=== PATIENT | female | born 1935 | race Caucasian/White ===

== ENCOUNTER 2017-01-31 08:42 | Emergency (ER) | payer MEDICARE, MEDICAID ==
--- NOTE | 2017-02-04 08:56 | ER ---
ADMIT: 01/31/2017 RM/LOC: [facility] MR#: [id number] [id number] [place], [place] [id number] [place] [address] Emergency Room Report SEX: F AGE: 81 : 1935 DATE: 01/31/2017 TIME: 0842 hours. Please refer to my T-sheet for complete H and P. Briefly, the patient is a 81-year-old who lives over at [facility], has a history of CVA with left-sided hemiparesis. She is nonambulatory. She had an episode this morning where she seemed not herself, they sent over here for evaluation. She says she now feels pretty much back to normal, maybe a little foggy in her head. No other complaints. No fevers, no cough, no chills. PHYSICAL EXAMINATION: VITAL SIGNS: Stable. HEENT: Grossly normal. LUNGS: Clear. HEART: Regular. ABDOMEN: Soft. SKIN: No rash. NEURO: She has left-sided weakness. She says it is at baseline now. No confusion. EMERGENCY DEPARTMENT COURSE: CT head was negative for acute change, just prior stroke. CBC normal except white count 4.5. Chemistries normal except potassium 3.5, glucose 171. Coags were normal. EKG is sinus rhythm, rate 66, no changes. I gave her 81 mg aspirin p.o. I talked to Dr. Liu. We are going to start as she is going to follow her up. ASSESSMENT: 1. Confusion, resolved. 2. Nicotine abuse. PLAN: Follow up with Dr. Liu and 81 mg aspirin a day. Stop smoking. Return if worse. Giovanni Babb MD/ glenroy JOB #: [id number] CC: Giovanni Babb MD, Attending Physician Leticia Liu MD, Family Physician
== END 2017-01-31 10:30 | disposition home or self-care (01) ==
LOC: ER 08:42
DX: R41.0 Disorientation, unspecified (principal); F17.210 Nicotine dependence, cigarettes, uncomplicated; I10 Essential (primary) hypertension; E78.5 Hyperlipidemia, unspecified; K21.9 Gastro-esophageal reflux disease without esophagitis; F32.9 Major depressive disorder, single episode, unspecified; Z86.73 Personal history of transient ischemic attack (TIA), and cerebral infarction without residual deficits; Z90.49 Acquired absence of other specified parts of digestive tract; Z90.89 Acquired absence of other organs; Z79.899 Other long term (current) drug therapy